=== PATIENT | female | born 1960 | race Caucasian/White ===

== ENCOUNTER 2020-10-15 06:59 | Day surgery (SDC) | payer MEDICARE ==
[2020-10-14 16:38] LABS: BASOPHILS % (AUTO) 0.9 % (0-1); EOSINOPHILS # (AUTO) 0.1 X10'3 (0-0.9); HEMATOCRIT 42.7 % (35.0-45.0); HEMOGLOBIN 14.6 g/dl (12.0-16.0); LYMPHOCYTES # (AUTO) 0.7 X10'3 (1.1-4.8); LYMPHOCYTES % (AUTO) 15.5 % (21-51); MEAN CORPUSCULAR HEMOGLOBIN 33.3 PG (27.0-31.0); MEAN CORPUSCULAR HGB CONC 34.3 g/dL (33.0-36.5); MEAN CORPUSCULAR VOLUME 97.3 FL (78-98); MEAN PLATELET VOLUME 7.9 FL (7.4-10.4); MONOCYTES # (AUTO) 0.3 X10'3 (0-0.9); MONOCYTES % (AUTO) 7.5 % (2-12); NEUTROPHILS # (AUTO) 3.1 X10'3 (1.8-7.7); NEUTROPHILS % (AUTO) 74.1 % (42-75); PLATELET COUNT 272 X10'3 (140-440); RED BLOOD COUNT 4.39 X10'6 (4.20-5.60); WHITE BLOOD COUNT 4.2 X10'3 (4.5-11.0)
[2020-10-14 16:48] LABS: PARTIAL THROMBOPLASTIN TIME 26 SECONDS (22-32)
[2020-10-14 16:58] LABS: ALBUMIN 3.7 G/DL (3.4-5.0); ANION GAP 12 (8-16); BLOOD UREA NITROGEN 8 MG/DL (7-18); BUN/CREATININE RATIO 9.1 (6.6-38.0); CALCIUM 8.8 MG/DL (8.5-10.1); CHLORIDE 97 MMOL/L (99-107); CREATININE 0.88 MG/DL (0.40-0.90); GLUCOSE 113 MG/DL (70-104); SODIUM 138 MMOL/L (135-145); TOTAL CARBON DIOXIDE 29.5 MMOL/L (24-32); eGFR 65 ML/MIN
[2020-10-15] VITALS (14 sets, daily range): BP systolic 68–132; BP diastolic 45–86
[~2020-10-15] VITALS: Ht 167.6 cm; Wt 81.2 kg
[~2020-10-15 06:59] MED LIST: ALBU8HFA PO; ASPI81TA53 PO; BUPR100T16 PO; CARB200T7 PO; COR3.125T PO; DOCU-148 PO; FLUO20CA39 PO; HYDR5SYR3 PO; LISI2.5T2 PO; NITR0.4T51 SL; OMEP40CA21 PO; PRAV20TA4 PO; PRED1TAB PO; SYN0.088T PO
[2020-10-15] MEDS ORDERED: diphenhydrAMINE 25mg capsule PO PRN (07:15)
[2020-10-15] MEDS ORDERED: normal saline 1,000 ML IV SCH (07:15)
[2020-10-15] MEDS ORDERED: LORazepam 0.5 MG tablet PO PRN (07:15)
[2020-10-15] MEDS ORDERED: LIDOcaine/PRILOcaine 5gm cream TP ONE (07:25)
[2020-10-15] MEDS ORDERED: SPIR25TA5 PO (07:37)
[2020-10-15] MEDS ORDERED: HYDR12.55 PO (07:37)
[2020-10-15] MEDS ORDERED: PANT40TA54 PO (07:37)
[2020-10-15] MEDS ORDERED: LEVO175T62 PO (07:37)
[2020-10-15] MEDS ORDERED: ATOR40TA72 PO (07:37)
[2020-10-15] MEDS ORDERED: LISI10TA27 PO (07:37)
[2020-10-15] MEDS ORDERED: CARV6.253 PO (07:37)
[2020-10-15] MEDS ORDERED: AMIT150T PO (07:37)
[2020-10-15] MEDS ORDERED: NITR0.4T51 SL (07:44)
[2020-10-15] MEDS ORDERED: LEVO50TA8 PO (07:44)
[2020-10-15] MEDS ORDERED: iohexol 350MG/ML 100ml bottle IV ONE (10:11)
[2020-10-15] MEDS ORDERED: midazolam 1 mg/ML 2ml injection ONE (10:11)
[2020-10-15] MEDS ORDERED: LIDOcaine 1% (10mg/ml)w/preservative injection 20ml MDV ONE (10:11)
[2020-10-15] MEDS ORDERED: fentaNYL/PF 50MCG/1 ML 2ML syringe ONE (10:11)
[2020-10-15] MEDS ORDERED: verapamil 2.5 mg/ml inj IV ONE (10:11)
[2020-10-15] MEDS ORDERED: iohexol 350 MG/ML 50ML vial IV ONE (10:11)
[2020-10-15] MEDS ORDERED: heparin 1,000unit/ml 10ml vial 10 ML ONE (10:11)
[2020-10-15] MEDS ORDERED: nitroGLYCERIN-Tridil 50MG/D5W 250 ML IV ONE (10:12)
[2020-10-15] MEDS ORDERED: DOPamine 400mg/D5W 250ml 250 ML IV ONE (11:05)
[2020-10-15] MEDS ORDERED: normal saline 1000ml 1,000 ML IV SCH (12:45)
== END 2020-10-15 18:50 | disposition home or self-care (01) ==
LOC: SSTAY O 06:59
PROVIDERS: ATTEND Internal Medicine Cardiovascular Disease
DX: I25.119 Atherosclerotic heart disease of native coronary artery with unspecified angina pectoris (principal); I42.0 Dilated cardiomyopathy; I10 Essential (primary) hypertension; E78.5 Hyperlipidemia, unspecified; F31.9 Bipolar disorder, unspecified; K21.9 Gastro-esophageal reflux disease without esophagitis; I25.2 Old myocardial infarction; E03.9 Hypothyroidism, unspecified; Z72.89 Other problems related to lifestyle; F12.90 Cannabis use, unspecified, uncomplicated; Z88.5 Allergy status to narcotic agent; Z79.899 Other long term (current) drug therapy; Z79.01 Long term (current) use of anticoagulants; Z87.19 Personal history of other diseases of the digestive system; Z90.49 Acquired absence of other specified parts of digestive tract; Z98.890 Other specified postprocedural states; Z82.49 Family history of ischemic heart disease and other diseases of the circulatory system; Z83.3 Family history of diabetes mellitus
CPT/HCPCS: 36415; 76937; 80048; 83880; 85025; 85347; 85610; 85730; 92978; 92979; 93005; 93458; 99152; 99153; C1751; C1753; C1769; C1894; J1265; J1644; J2001; J2250; J3010; J7030; Q0163; Q9967; A4620; A6258; J3490

== ENCOUNTER 2020-10-18 12:15 | Emergency (ER) | payer MEDICARE ==
[~2020-10-18] VITALS: Ht 167.6 cm; Wt 79.9 kg
[~2020-10-18 12:15] MED LIST changes: +AMIT150T PO; -ASPI81TA53 PO; +ATOR40TA72 PO; +CARV6.253 PO; -COR3.125T PO; -DOCU-148 PO; +HYDR12.55 PO; -HYDR5SYR3 PO; +LEVO175T62 PO; +LEVO50TA8 PO; +LISI10TA27 PO; -LISI2.5T2 PO; -OMEP40CA21 PO; +PANT40TA54 PO; -PRAV20TA4 PO; -PRED1TAB PO; +SPIR25TA5 PO; -SYN0.088T PO
--- NOTE | 2020-10-18 12:27 | NUR ---
EKG 1226
[2020-10-18 13:18] LABS: BASOPHILS # (AUTO) 0.1 X10'3 (0-0.2); BASOPHILS % (AUTO) 1.9 % (0-1); EOSINOPHILS # (AUTO) 0.1 X10'3 (0-0.9); EOSINOPHILS % (AUTO) 1.9 % (0-6); HEMATOCRIT 41.2 % (35.0-45.0); HEMOGLOBIN 14.1 g/dl (12.0-16.0); LYMPHOCYTES # (AUTO) 0.5 X10'3 (1.1-4.8); LYMPHOCYTES % (AUTO) 11.4 % (21-51); MEAN CORPUSCULAR HEMOGLOBIN 32.3 PG (27.0-31.0); MEAN CORPUSCULAR HGB CONC 34.2 g/dL (33.0-36.5); MEAN CORPUSCULAR VOLUME 94.4 FL (78-98); MEAN PLATELET VOLUME 7.5 FL (7.4-10.4); MONOCYTES # (AUTO) 0.3 X10'3 (0-0.9); MONOCYTES % (AUTO) 6.5 % (2-12); NEUTROPHILS # (AUTO) 3.7 X10'3 (1.8-7.7); NEUTROPHILS % (AUTO) 78.3 % (42-75); PLATELET COUNT 260 X10'3 (140-440); RED BLOOD COUNT 4.37 X10'6 (4.20-5.60); RED CELL DISTRIBUTION WIDTH 13.8 % (11.5-14.5); WHITE BLOOD COUNT 4.7 X10'3 (4.5-11.0)
[2020-10-18 13:32] LABS: ALANINE AMINOTRANSFERASE 28 U/L (12-78); ALBUMIN 3.5 G/DL (3.4-5.0); ALKALINE PHOSPHATASE 105 IU/L (46-116); ANION GAP 7 (8-16); ASPARTATE AMINO TRANSFERASE 23 U/L (10-37); BILIRUBIN,TOTAL 0.4 MG/DL (0.1-1.0); BLOOD UREA NITROGEN 6 MG/DL (7-18); BUN/CREATININE RATIO 6.9 (6.6-38.0); CALCIUM 8.9 MG/DL (8.5-10.1); CHLORIDE 100 MMOL/L (99-107); CREATININE 0.87 MG/DL (0.40-0.90); GLUCOSE 111 MG/DL (70-104); SODIUM 139 MMOL/L (135-145); TOTAL CARBON DIOXIDE 32.3 MMOL/L (24-32); TOTAL PROTEIN 7.1 G/DL (6.4-8.2); eGFR 66 ML/MIN
[2020-10-18] MEDS ORDERED: normal saline 1000ml 1,000 ML IV ONE (17:15)
[2020-10-18] MEDS ORDERED: proCHLORperazine 10 MG/2 ml inj IV ONE (17:15)
[2020-10-18] MEDS ORDERED: acetaminophen 325mg tablet PO ONE (17:15)
[2020-10-18] MEDS ORDERED: ketorolac trometh. 30mg/ml inj. IV ONE (17:15)
[2020-10-18 19:10] VITALS: BP 154/88
== END 2020-10-18 19:17 | disposition home or self-care (01) ==
LOC: ER 12:16
DX: R07.89 Other chest pain (principal); R42 Dizziness and giddiness; R51.9 Headache, unspecified; R11.10 Vomiting, unspecified; I25.10 Atherosclerotic heart disease of native coronary artery without angina pectoris; I10 Essential (primary) hypertension; F12.90 Cannabis use, unspecified, uncomplicated; Z72.89 Other problems related to lifestyle; Z79.899 Other long term (current) drug therapy; Z88.8 Allergy status to other drugs, medicaments and biological substances
CPT/HCPCS: 36415; 71045; 80053; 83880; 84484; 85025; 93005; 96361; 96374; 96375; 99285; J0780; J1885; J7030

== ENCOUNTER 2021-01-21 08:00 | Inpatient (IN) | payer MEDICARE ==
[2021-01-16 13:57] LABS: CLARITY,URINE CLOUDY (Clear); COLOR,URINE YELLOW (Yellow); GLUCOSE, URINE NEGATIVE (Neg); KETONES,URINE NEGATIVE (Neg); LEUKOCYTE ESTERASE ,URINE MODERATE (Neg); NITRITES, URINE NEGATIVE (Neg); OCCULT BLOOD,URINE SMALL (Neg); PROTEIN,URINE NEGATIVE (Neg); UA COLLECTION TYPE VOIDED; UROBILINOGEN,URINE 0.2 E.U/dL (0.2-1.0)
[2021-01-16 13:58] LABS: BACTERIA,URINE 1+ /HPF (Neg); MUCUS STRANDS NONE SEEN /LPF (Neg); RBC,URINE 0-2 /HPF (0-2)
[2021-01-16 13:59] LABS: SQUAMOUS EPITHELIAL CELL,UR FEW /LPF (FEW)
[2021-01-16 14:46] LABS: BASOPHILS # (AUTO) 0.1 X10'3 (0-0.2); EOSINOPHILS # (AUTO) 0.2 X10'3 (0-0.9); MONOCYTES # (AUTO) 0.4 X10'3 (0-0.9)
[2021-01-16 14:47] LABS: BASOPHILS % (AUTO) 1.2 % (0-1); EOSINOPHILS % (AUTO) 3.1 % (0-6); LYMPHOCYTES # (AUTO) 0.7 X10'3 (1.1-4.8); MEAN CORPUSCULAR HEMOGLOBIN 32.4 PG (27.0-31.0); MEAN CORPUSCULAR HGB CONC 35.4 g/dL (33.0-36.5); MEAN CORPUSCULAR VOLUME 91.6 FL (78-98); MEAN PLATELET VOLUME 7.4 FL (7.4-10.4); MONOCYTES % (AUTO) 6.4 % (2-12); NEUTROPHILS # (AUTO) 4.3 X10'3 (1.8-7.7); NEUTROPHILS % (AUTO) 77.3 % (42-75); PRE OP HEMATOCRIT 37.1 % (35.0-45.0); PRE OP HEMOGLOBIN 13.1 g/dL (12.0-16.0); PRE OP PLATELET COUNT 275 X10'3 (140-440); RED BLOOD COUNT 4.05 X10'6 (4.20-5.60)
[2021-01-16 14:59] LABS: PRE OP INR 1.1 INR; PRE OP PROTIME 11.2 SECONDS (9.0-12.0)
[2021-01-16 15:07] LABS: ALBUMIN 3.2 G/DL (3.4-5.0); ALBUMIN/GLOBULIN RATIO 0.9 (1.1-1.5); ALKALINE PHOSPHATASE 96 IU/L (46-116); BLOOD UREA NITROGEN 8 MG/DL (7-18); BUN/CREATININE RATIO 9.8 (6.6-38.0); CALCIUM 8.9 MG/DL (8.5-10.1); CHLORIDE 97 MMOL/L (99-107); CREATININE 0.82 MG/DL (0.40-0.90); PRE OP ALT 29 U/L (30-65); PRE OP ANION GAP 7 (8-16); PRE OP AST 22 U/L (10-37); PRE OP BILIRUB, TOTAL 0.3 MG/DL (0.0-1.0); PRE OP GLUCOSE 105 MG/DL (70-104); PRE OP SODIUM 140 MMOL/L (135-145); TOTAL CARBON DIOXIDE 35.9 MMOL/L (24-32); TOTAL PROTEIN 6.8 G/DL (6.4-8.2); eGFR 71 ML/MIN
[2021-01-16 15:10] LABS: HEMOGLOBIN A1C 6.1 % (4.5-6.2)
[2021-01-19 06:44] LABS: ABG BASE EXCESS 9.1 mmol/L (-2.0-2.0); ABG HCO3 31.9 mmol/L (22.0-26.0); ABG OXYGEN SATURATION 97.5 % (94-97); ABG PCO2 (T) 37.2 mmHg (32.0-45.0); ABG PO2 (T) 91.5 mmHg (75.0-100.0); ALLEN'S TEST POSITIVE; FCOHb 0.7 % (0.0-3.9); FMetHb 0.3 % (0.0-1.5); FO2Hb 96.5 % (94-97); TOTAL HEMOGLOBIN 13.6 G/dl (12.0-16.0)
[~2021-01-21] VITALS: Ht 167.6 cm; Wt 88.0 kg
[~2021-01-21 08:00] MED LIST changes: -ALBU8HFA PO; +ASPI-611 PO; +BUPR-344 PO; -BUPR100T16 PO; +CARB-52 PO; -CARB200T7 PO; +DOCUMENT DATE & TIME OF BETA-BLOCKER PO ONE; -FLUO20CA39 PO; -LEVO50TA8 PO; +LORazepam 2 mg/ml vial IV ONE; -NITR0.4T51 SL; +albuterol 2.5 MG/3 ML nebule NEB ONE; +albuterol 2.5 MG/3 ML nebule NEB PRN; +cefazolin/dext.iso 2gm/50ml 100 ML IV ONE; +famotidine 20mg tablet PO ONE; +gabapentin 400mg capsule PO ONE; +metoprolol tartrate 12.5mg (1/2 tablet) PO ONE; +ringers solution, lacted 1,000 ML IV SCH
[2021-01-22] MEDS ORDERED: FLUO40CA PO (13:17)
[2021-01-23] VITALS (18 sets, daily range): BP systolic 97–153; BP diastolic 52–93
[2021-01-23] MEDS ORDERED: ringers solution, lacted 1,000 ML IV SCH (05:00)
[2021-01-23] MEDS ORDERED: albuterol 2.5 MG/3 ML nebule NEB ONE ×2 (05:30→07:00)
[2021-01-23] MEDS ORDERED: cefazolin/dext.iso 2gm/50ml 50 ML IV ONE (05:30)
[2021-01-23] MEDS ORDERED: DOCUMENT DATE & TIME OF BETA-BLOCKER PO ONE (05:30)
[2021-01-23] MEDS ORDERED: BUPIVAcaine 0.5% inj/PF 30 ML ONE (05:40)
[2021-01-23] MEDS ORDERED: ceFAZolin 1000mg inj ONE ×2 (05:40→10:12)
[2021-01-23] MEDS ORDERED: epiNEPHrine 1 mg/ml inj ONE (05:40)
[2021-01-23] MEDS ORDERED: LORazepam 2 mg/ml vial IV ONE (06:00)
[2021-01-23] MEDS ORDERED: famotidine 20mg tablet PO ONE (06:00)
[2021-01-23] MEDS ORDERED: gabapentin 400mg capsule PO ONE (06:00)
[2021-01-23] MEDS ORDERED: metoprolol tartrate 12.5mg (1/2 tablet) PO ONE (06:00)
[2021-01-23] MEDS ORDERED: SUFENTANIL CITRATE 50 MCG/ML 2ml ampule IV ONE (06:41)
[2021-01-23] MEDS ORDERED: MIDAZolam 1mg/ml 10ml vial ONE (06:41)
[2021-01-23] MEDS ORDERED: dextrose 50%-water 50ml dispensing syringe IV PRN ×4 (06:55→10:15)
[2021-01-23] MEDS ORDERED: insulin Lispro (HumaLOG) vial - multi-dose SQ SCH ×2 (06:55→07:20)
[2021-01-23] MEDS ORDERED: glucagon, human recombinant 1mg kit SUBCUT PRN (06:55)
[2021-01-23] MEDS ORDERED: dextrose ORAL solution 15 GM/59 ML bottle PO PRN ×2 (06:55)
[2021-01-23] MEDS ORDERED: MESSAGE TO PHARMACY PO ONE (06:55)
[2021-01-23] MEDS ORDERED: midazolam 100mg in NS 100ml 100 ML IV PRN (07:20)
[2021-01-23] MEDS ORDERED: fentaNYL/PF 50MCG/1 ML 2ML syringe IV PRN (07:20)
[2021-01-23] MEDS ORDERED: midazolam 1 mg/ML 2ml injection IV ONE (07:20)
[2021-01-23] MEDS ORDERED: FENTANYL-0.9 % NACL/PF 100 ML IV PRN (07:20)
[2021-01-23] MEDS ORDERED: albumin (human) 25% 100 ML IV solution IV ONE (08:00)
[2021-01-23] MEDS ORDERED: sodium bicarbonate (8.4%) 1 mEq/ml syringe ONE (08:00)
[2021-01-23] MEDS ORDERED: heparin 1,000 units/ml 10ml inj ONE (08:00)
[2021-01-23] MEDS ORDERED: calcium chloride 100 MG/1 ML inj IV ONE (08:00)
[2021-01-23] MEDS ORDERED: LIDOcaine 2% (20 mg/ml) 5ml cardiac syringe ONE (08:00)
[2021-01-23] MEDS ORDERED: papaverine 30 mg/ml 2ml inj. ONE (08:00)
[2021-01-23] MEDS ORDERED: methylPREDNISolone sod succ 1000mg vial ONE (08:00)
[2021-01-23] MEDS ORDERED: aminocaproic acid 250 MG/1 ML inj. ONE (08:00)
[2021-01-23] MEDS ORDERED: NORepinephrine 1 mg/ml inj IV ONE (08:00)
[2021-01-23] MEDS ORDERED: MAGNESIUM SULFATE 4 MEQ/ML (5gm/10ml) injection ONE (08:00)
[2021-01-23] MEDS ORDERED: heparin 10,000 units/1 ML INJ ONE ×2 (08:00)
[2021-01-23 08:04] LABS: ABG BASE EXCESS 0.3 mmol/L (-2.0-2.0); ABG HCO3 23.7 mmol/L (22.0-26.0); ABG OXYGEN SATURATION 99.5 % (94-97); ABG PCO2 34.3 mmHg (32.0-45.0); ABG PO2 308.6 mmHg (75.0-100.0); CL (ABG) 102 mmol/L (98-110); FCOHb 0.3 % (0.0-3.9); FMetHb 0.3 % (0.0-1.5); FO2Hb 98.9 % (94-97); GLUCOSE (ABG) 92 mg/dl (70-105); IONIZED CA (ABG) 1.09 mmol/L (1.10-1.43); K (ABG) 3.2 mmol/L (3.5-5.0); TOTAL HEMOGLOBIN 11.4 G/dl (12.0-16.0)
[2021-01-23] MEDS ORDERED: phenylephrine 10mg/ml inj. ONE (08:18)
[2021-01-23] MEDS ORDERED: LIDOcaine 2% (20mg/ml) 5ml vial ONE (08:18)
[2021-01-23] MEDS ORDERED: rocuronium 10mg/ml inj IV ONE ×3 (08:18→09:56)
[2021-01-23] MEDS ORDERED: propofol inj 20 ML IV ONE (08:18)
[2021-01-23] MEDS ORDERED: 0.9 % SODIUM CHLORIDE 10 ML VIAL ONE ×3 (08:18→08:29)
[2021-01-23] MEDS ORDERED: papaverine 30 mg/ml 2ml inj. IA ONE (08:28)
[2021-01-23] MEDS ORDERED: heparin 10,000 units/1 ML INJ IR ONE (08:28)
[2021-01-23] MEDS ORDERED: ePHEDrine 50MG/ML INJ. ONE (08:29)
[2021-01-23 09:56] LABS: ACTIVATED CLOTTING TIME 137 SEC (101-148)
[2021-01-23] MEDS ORDERED: dexamethasone sod phosphate 4mg/ml inj. ONE (09:58)
[2021-01-23] MEDS ORDERED: ondansetron/PF 4mg/2ml inj ONE (09:58)
[2021-01-23] MEDS ORDERED: ondansetron/PF 4mg/2ml inj IV PRN (10:15)
[2021-01-23] MEDS ORDERED: niCARDipine-NS 40mg/200ml IVPB 200 ML IV PRN (10:15)
[2021-01-23] MEDS ORDERED: magnesium citrate 296ml oral solution PO PRN (10:15)
[2021-01-23] MEDS ORDERED: acetaminophen 325mg tablet PO PRN (10:15)
[2021-01-23] MEDS ORDERED: magnesium 4gm in 100ml NS 100 ML IV PRN (10:15)
[2021-01-23] MEDS ORDERED: mineral oil 133ml enema RC PRN (10:15)
[2021-01-23] MEDS ORDERED: pantoprazole 40 MG vial IV ONE (10:15)
[2021-01-23] MEDS ORDERED: metoclopramide 5 mg/ml inj IV PRN (10:15)
[2021-01-23] MEDS ORDERED: morphine 4 MG/ML inj SYRINge IV PRN (10:15)
[2021-01-23] MEDS ORDERED: magnesium 2GM in 50ml NS 50 ML IV PRN (10:15)
[2021-01-23] MEDS ORDERED: HYDROcodone/acetaminophen 10/325mg tab PO PRN (10:15)
[2021-01-23] MEDS ORDERED: potassium CL 10mEq/100ml bag 100 ML IV PRN (10:15)
[2021-01-23] MEDS ORDERED: potassium Cl 20 mEq SR tablet PO PRN (10:15)
[2021-01-23] MEDS ORDERED: magnesium hydroxide 30ml (MOM) UD suspension PO PRN (10:15)
[2021-01-23] MEDS ORDERED: bisacodyl 10mg suppository rectal RC PRN (10:15)
[2021-01-23] MEDS ORDERED: sodium phosphate inj. 30 MMOL in dextrose 5%-water 250 ML IV PRN (10:15)
[2021-01-23] MEDS ORDERED: insulin glargine (Lantus) pen - multi-dose SQ PRN (10:15)
[2021-01-23] MEDS ORDERED: sodium phosphate inj. 15 MMOL in dextrose 5%-water 250 ML IV PRN (10:15)
[2021-01-23] MEDS ORDERED: potassium Cl 40MEQ/250ML bag 250 ML IV PRN (10:15)
[2021-01-23] MEDS ORDERED: Neutra Phos packet PO PRN (10:15)
[2021-01-23] MEDS ORDERED: potassium Cl 20mEq/100mL bag 100 ML IV PRN (10:15)
[2021-01-23] MEDS ORDERED: NOREPINEPHRINE BITARTRATE/D5W 250 ML IV PRN (10:15)
[2021-01-23] MEDS ORDERED: Insulin Reg/NS 100units/100mL 100 ML IV SCH (10:15)
[2021-01-23] MEDS ORDERED: potassium Cl 40MEQ/1/2NS 520ml 520 ML IV PRN (10:15)
[2021-01-23] MEDS ORDERED: nitroGLYCERIN-Tridil 50MG/D5W 250 ML IV SCH (10:15)
--- NOTE | 2021-01-23 10:30 | NUR ---
Received to room 2044, accompanied by MDs and surgical crew. Placed on ventilator, to paper novelty maker, arterial line and PA line pressure monitored. Chest tubes to suction at 20 cm. Oates cath to gravity drainage. Dressings are dry and intact. See assessment record. All vasoactive drugs are infusing via central line.
[2021-01-23 10:49] LABS: ABG BASE EXCESS -0.4 mmol/L (-2.0-2.0); ABG HCO3 23.1 mmol/L (22.0-26.0); ABG OXYGEN SATURATION 99.1 % (94-97); ABG PCO2 (T) 33.6 mmHg (32.0-45.0); FCOHb 0.2 % (0.0-3.9); FMetHb 0.4 % (0.0-1.5); FO2Hb 98.5 % (94-97); RESPIRATORY RATE 12 b/min; TIDAL VOLUME 500 mL; TOTAL HEMOGLOBIN 10.1 G/dl (12.0-16.0)
[2021-01-23] MEDS ORDERED: NORepinephrine 32 MG in Normal Saline 250ml IV soln IV SCH (11:00)
[2021-01-23] MEDS ORDERED: NORepinephrine 32 MG in Normal Saline 250ml IV soln IV PRN (11:01)
[2021-01-23 11:05] LABS: BASOPHILS % (AUTO) 0.3 % (0-1); EOSINOPHILS # (AUTO) 0.1 X10'3 (0-0.9); EOSINOPHILS % (AUTO) 0.6 % (0-6); HEMATOCRIT 27.6 % (35.0-45.0); HEMOGLOBIN 9.5 g/dl (12.0-16.0); LYMPHOCYTES # (AUTO) 0.4 X10'3 (1.1-4.8); LYMPHOCYTES % (AUTO) 3.3 % (21-51); MEAN CORPUSCULAR HGB CONC 34.3 g/dL (33.0-36.5); MEAN CORPUSCULAR VOLUME 93.1 FL (78-98); MEAN PLATELET VOLUME 7.3 FL (7.4-10.4); MONOCYTES # (AUTO) 0.3 X10'3 (0-0.9); MONOCYTES % (AUTO) 2.2 % (2-12); NEUTROPHILS % (AUTO) 93.6 % (42-75); PLATELET COUNT 195 X10'3 (140-440); RED BLOOD COUNT 2.97 X10'6 (4.20-5.60); RED CELL DISTRIBUTION WIDTH 13.3 % (11.5-14.5); WHITE BLOOD COUNT 12.8 X10'3 (4.5-11.0)
--- NOTE | 2021-01-23 11:14 | NUR ---
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 Would benefit from nutrition therapy education once stable. Will continue to follow. Addendum: 01/23/21 at [address] Amended: Links added.
[2021-01-23 11:15] LABS: PARTIAL THROMBOPLASTIN TIME 26 SECONDS (22-32)
[2021-01-23 11:17] LABS: ALANINE AMINOTRANSFERASE 24 U/L (12-78); ALBUMIN 2.4 G/DL (3.4-5.0); ALBUMIN/GLOBULIN RATIO 1.1 (1.1-1.5); ALKALINE PHOSPHATASE 64 IU/L (46-116); ANION GAP 11 (8-16); ASPARTATE AMINO TRANSFERASE 28 U/L (10-37); BILIRUBIN,TOTAL 0.4 MG/DL (0.1-1.0); BLOOD UREA NITROGEN 6 MG/DL (7-18); BUN/CREATININE RATIO 7.9 (6.6-38.0); CALCIUM 7.8 MG/DL (8.5-10.1); CHLORIDE 108 MMOL/L (99-107); CREATININE 0.76 MG/DL (0.40-0.90); GLUCOSE 204 MG/DL (70-104); MAGNESIUM 2.7 MG/DL (1.5-2.4); PHOSPHORUS 2.9 MG/DL (2.3-4.5); POTASSIUM 3.8 MMOL/L (3.5-5.1); SODIUM 145 MMOL/L (135-145); TOTAL CARBON DIOXIDE 26.3 MMOL/L (24-32); TOTAL PROTEIN 4.5 G/DL (6.4-8.2); eGFR 77 ML/MIN
--- NOTE | 2021-01-23 11:41 | NUR ---
ST Elevation noted on post-op EKG; Dr. Garay notified. Monitor for ST depression per MD. No other new orders at this time.
[2021-01-23] MEDS ORDERED: NORepinephrine inj. 8 MG in dextrose 5%-water 242 ML IV PRN (11:55)
[2021-01-23] MEDS: Insulin Reg/NS 100units/100mL 100 ML IV SCH (11:56)
[2021-01-23] MEDS ORDERED: NORepinephrine 8mg/ 250ml NS 250 ML IV PRN (11:57)
[2021-01-23] MEDS: gabapentin 300mg capsule PO SCH ×2 (12:03→20:18)
[2021-01-23 14:21] LABS: ABG BASE EXCESS -0.8 mmol/L (-2.0-2.0); ABG HCO3 24.3 mmol/L (22.0-26.0); ABG PCO2 (T) 43.3 mmHg (32.0-45.0); ABG PO2 (T) 141.1 mmHg (75.0-100.0); FCOHb 0.3 % (0.0-3.9); FMetHb 0.1 % (0.0-1.5); FO2Hb 97.6 % (94-97); PATIENT TEMPERATURE 37.7; PEEP 5 cm H2O; TOTAL HEMOGLOBIN 10.5 G/dl (12.0-16.0)
[2021-01-23] MEDS: morphine 4 MG/ML inj SYRINge IV PRN ×2 (15:50→22:34)
[2021-01-23] MEDS: ceFAZolin/D5W- 1GM premix 50 ML IV SCH (16:13)
[2021-01-23] MEDS: albumin (Human) 5% 250ml 250 ML IV PRN (16:26)
[2021-01-23 16:54] LABS: BASOPHILS % (AUTO) 0.1 % (0-1); EOSINOPHILS % (AUTO) 0.1 % (0-6); HEMATOCRIT 25.1 % (35.0-45.0); HEMOGLOBIN 8.7 g/dl (12.0-16.0); LYMPHOCYTES # (AUTO) 0.2 X10'3 (1.1-4.8); LYMPHOCYTES % (AUTO) 1.6 % (21-51); MEAN CORPUSCULAR HEMOGLOBIN 31.7 PG (27.0-31.0); MEAN CORPUSCULAR HGB CONC 34.6 g/dL (33.0-36.5); MEAN CORPUSCULAR VOLUME 91.7 FL (78-98); MEAN PLATELET VOLUME 7.1 FL (7.4-10.4); MONOCYTES # (AUTO) 0.2 X10'3 (0-0.9); MONOCYTES % (AUTO) 1.7 % (2-12); NEUTROPHILS # (AUTO) 11.3 X10'3 (1.8-7.7); NEUTROPHILS % (AUTO) 96.5 % (42-75); PLATELET COUNT 186 X10'3 (140-440); RED BLOOD COUNT 2.73 X10'6 (4.20-5.60); WHITE BLOOD COUNT 11.7 X10'3 (4.5-11.0)
[2021-01-23 17:04] LABS: ANION GAP 9 (8-16); BLOOD UREA NITROGEN 8 MG/DL (7-18); BUN/CREATININE RATIO 8.2 (6.6-38.0); CALCIUM 7.6 MG/DL (8.5-10.1); CHLORIDE 112 MMOL/L (99-107); CREATININE 0.97 MG/DL (0.40-0.90); GLUCOSE 131 MG/DL (70-104); MAGNESIUM 2.3 MG/DL (1.5-2.4); PHOSPHORUS 1.9 MG/DL (2.3-4.5); POTASSIUM 3.8 MMOL/L (3.5-5.1); SODIUM 148 MMOL/L (135-145); TOTAL CARBON DIOXIDE 26.7 MMOL/L (24-32); eGFR 58 ML/MIN
[2021-01-23] MEDS ORDERED: potassium phosphate inj 15 MMOL in NS 250ml IV soln 250 ML IV ONE (17:15)
--- NOTE | 2021-01-23 18:30 | NUR ---
Problems reprioritized. Patient report given, questions answered & plan of care reviewed with Luis SIMMONS.
[2021-01-23] MEDS ORDERED: LORazepam 2 mg/ml vial IV PRN (18:35)
[2021-01-23] MEDS ORDERED: haloperidol 5mg tablet PO PRN (18:35)
[2021-01-23] MEDS ORDERED: haloperidol lactate 5mg/ml inj IM PRN (18:35)
--- NOTE | 2021-01-23 18:39 | NUR ---
Patient with increasing tremors/fidgeting; per , patient consumes 6-7 beers/night. Dr. Garay notified and okay with the Alcohol withdrawal protocol and beer with each meal, including tonight.
--- NOTE | 2021-01-23 19:00 | NUR ---
Patient in room ICU 2044. I have received report from David SIMMONS and had the opportunity to ask questions and assume patient care.
[2021-01-23] MEDS: sennosides/docusate sodium tablet PO SCH (20:18)
[2021-01-23] MEDS: vancomycin/NS 1 GM ADD-VANTAGE 250 ML IV SCH (20:19)
[2021-01-23] MEDS: mupirocin 2% ointment 22GM NS SCH (20:19)
[2021-01-23] MEDS: atorvastatin 10mg tablet PO SCH (21:00)
[2021-01-23] MEDS: insulin glargine (Lantus) pen - multi-dose SQ SCH (21:00)
[2021-01-24] VITALS (26 sets, daily range): BP systolic 89–155; BP diastolic 30–79
[2021-01-24] MEDS: morphine 4 MG/ML inj SYRINge IV PRN ×4 (00:12→22:16)
[2021-01-24] MEDS: ceFAZolin/D5W- 1GM premix 50 ML IV SCH ×3 (00:19→16:21)
[2021-01-24 03:16] LABS: ALANINE AMINOTRANSFERASE 29 U/L (12-78); ALBUMIN 2.8 G/DL (3.4-5.0); ALBUMIN/GLOBULIN RATIO 1.2 (1.1-1.5); ALKALINE PHOSPHATASE 58 IU/L (46-116); ANION GAP 8 (8-16); ASPARTATE AMINO TRANSFERASE 93 U/L (10-37); BILIRUBIN,TOTAL 0.2 MG/DL (0.1-1.0); BLOOD UREA NITROGEN 8 MG/DL (7-18); BUN/CREATININE RATIO 8.9 (6.6-38.0); CALCIUM 7.6 MG/DL (8.5-10.1); CHLORIDE 112 MMOL/L (99-107); GLUCOSE 119 MG/DL (70-104); MAGNESIUM 2.5 MG/DL (1.5-2.4); POTASSIUM 4.5 MMOL/L (3.5-5.1); SODIUM 146 MMOL/L (135-145); TOTAL CARBON DIOXIDE 25.8 MMOL/L (24-32); TOTAL PROTEIN 5.1 G/DL (6.4-8.2); eGFR 64 ML/MIN
[2021-01-24 03:26] LABS: BASOPHILS % (AUTO) 0.1 % (0-1); EOSINOPHILS % (AUTO) 0 % (0-6); HEMATOCRIT 24.1 % (35.0-45.0); HEMOGLOBIN 8.3 g/dl (12.0-16.0); LYMPHOCYTES # (AUTO) 0.5 X10'3 (1.1-4.8); LYMPHOCYTES % (AUTO) 4.3 % (21-51); MEAN CORPUSCULAR HEMOGLOBIN 33.2 PG (27.0-31.0); MEAN CORPUSCULAR HGB CONC 34.3 g/dL (33.0-36.5); MEAN PLATELET VOLUME 8.4 FL (7.4-10.4); MONOCYTES # (AUTO) 0.9 X10'3 (0-0.9); MONOCYTES % (AUTO) 7.4 % (2-12); NEUTROPHILS # (AUTO) 10.7 X10'3 (1.8-7.7); NEUTROPHILS % (AUTO) 88.2 % (42-75); PLATELET COUNT 187 X10'3 (140-440); RED BLOOD COUNT 2.49 X10'6 (4.20-5.60); RED CELL DISTRIBUTION WIDTH 13.8 % (11.5-14.5); WHITE BLOOD COUNT 12.1 X10'3 (4.5-11.0)
[2021-01-24] MEDS: HYDROcodone/acetaminophen 10/325mg tab PO PRN (05:36)
[2021-01-24] MEDS: sennosides/docusate sodium tablet PO SCH ×3 (07:34→20:00)
[2021-01-24] MEDS: gabapentin 300mg capsule PO SCH ×3 (07:35→20:44)
[2021-01-24] MEDS: aspirin 325mg tablet, delayed-release (Ecotrin) PO SCH (07:35)
[2021-01-24] MEDS: folic acid 1mg tablet PO SCH (07:35)
[2021-01-24] MEDS: vancomycin/NS 1 GM ADD-VANTAGE 250 ML IV SCH ×2 (07:36→21:02)
[2021-01-24] MEDS: thiamine 100mg tablet PO SCH (07:36)
[2021-01-24] MEDS: multivitamins, therapeutics tablet PO SCH (07:36)
[2021-01-24] MEDS: albumin (Human) 5% 250ml 250 ML IV PRN ×2 (07:37→08:18)
[2021-01-24] MEDS: metoprolol tartrate 12.5mg (1/2 tablet) PO SCH ×2 (08:00→20:00)
[2021-01-24] MEDS: mupirocin 2% ointment 22GM NS SCH ×2 (08:00→20:00)
[2021-01-24] MEDS ORDERED: mineral oil/petrolatum ophthal oint EACHEYE SCH (08:00)
[2021-01-24] MEDS ORDERED: pantoprazole 40mg Tablet.DR PO SCH (14:35)
[2021-01-24 15:06] LABS: HEMOGLOBIN 7.2 g/dl (12.0-16.0); MEAN CORPUSCULAR HEMOGLOBIN 32.1 PG (27.0-31.0); MEAN CORPUSCULAR HGB CONC 34.2 g/dL (33.0-36.5); MEAN CORPUSCULAR VOLUME 93.8 FL (78-98); MEAN PLATELET VOLUME 7.8 FL (7.4-10.4); PLATELET COUNT 179 X10'3 (140-440); RED BLOOD COUNT 2.26 X10'6 (4.20-5.60); RED CELL DISTRIBUTION WIDTH 13.5 % (11.5-14.5); WHITE BLOOD COUNT 11.4 X10'3 (4.5-11.0)
[2021-01-24 15:08] LABS: HEMATOCRIT 21.2 % (35.0-45.0)
[2021-01-24] MEDS ORDERED: ketorolac trometh. 30mg/ml inj. IV ONE (15:20)
[2021-01-24] MEDS: Insulin Reg/NS 100units/100mL 100 ML IV SCH (16:40)
[2021-01-24] MEDS: FLUoxetine 20mg capsule PO SCH (20:00)
[2021-01-24] MEDS: carBAMazepine Ext. Release 200 MG TAB.ER.12H PO SCH (20:00)
[2021-01-24] MEDS: atorvastatin 10mg tablet PO SCH (20:43)
[2021-01-24] MEDS: amitriptyline 50mg tablet PO SCH (20:45)
[2021-01-24] MEDS: insulin glargine (Lantus) pen - multi-dose SQ SCH (21:00)
[2021-01-25] VITALS (24 sets, daily range): BP systolic 84–128; BP diastolic 46–86
[2021-01-25] MEDS: morphine 4 MG/ML inj SYRINge IV PRN ×2 (01:24→06:59)
[2021-01-25] MEDS: ceFAZolin/D5W- 1GM premix 50 ML IV SCH (02:23)
[2021-01-25 03:17] LABS: BASOPHILS % (AUTO) 0.4 % (0-1); EOSINOPHILS % (AUTO) 0.4 % (0-6); HEMATOCRIT 24.8 % (35.0-45.0); HEMOGLOBIN 8.6 g/dl (12.0-16.0); LYMPHOCYTES # (AUTO) 0.8 X10'3 (1.1-4.8); LYMPHOCYTES % (AUTO) 8.7 % (21-51); MEAN CORPUSCULAR HEMOGLOBIN 33.4 PG (27.0-31.0); MEAN CORPUSCULAR HGB CONC 34.6 g/dL (33.0-36.5); MEAN CORPUSCULAR VOLUME 96.4 FL (78-98); MONOCYTES # (AUTO) 0.9 X10'3 (0-0.9); MONOCYTES % (AUTO) 9.8 % (2-12); NEUTROPHILS # (AUTO) 7.4 X10'3 (1.8-7.7); NEUTROPHILS % (AUTO) 80.7 % (42-75); PLATELET COUNT 158 X10'3 (140-440); RED BLOOD COUNT 2.57 X10'6 (4.20-5.60); RED CELL DISTRIBUTION WIDTH 14.2 % (11.5-14.5); WHITE BLOOD COUNT 9.1 X10'3 (4.5-11.0)
[2021-01-25 03:26] LABS: ALBUMIN 2.9 G/DL (3.4-5.0); ANION GAP 8 (8-16); BLOOD UREA NITROGEN 11 MG/DL (7-18); BUN/CREATININE RATIO 12.4 (6.6-38.0); CALCIUM 7.8 MG/DL (8.5-10.1); CHLORIDE 109 MMOL/L (99-107); CREATININE 0.89 MG/DL (0.40-0.90); GLUCOSE 139 MG/DL (70-104); MAGNESIUM 2.1 MG/DL (1.5-2.4); PHOSPHORUS 2.6 MG/DL (2.3-4.5); POTASSIUM 4.7 MMOL/L (3.5-5.1); SODIUM 142 MMOL/L (135-145); TOTAL CARBON DIOXIDE 25.4 MMOL/L (24-32); eGFR 64 ML/MIN
--- NOTE | 2021-01-25 06:30 | NUR ---
Patient in room ICU 2044. I have received report from TROY Smith and had the opportunity to ask questions and assume patient care.
[2021-01-25] MEDS: pantoprazole 40mg Tablet.DR PO SCH (07:00)
[2021-01-25] MEDS: levoTHYROXINE 88mcg tablet PO SCH (07:00)
[2021-01-25] MEDS: aspirin 325mg tablet, delayed-release (Ecotrin) PO SCH (07:52)
[2021-01-25] MEDS: buPROPion SR 150mg tablet PO SCH ×2 (07:52→20:00)
[2021-01-25] MEDS: folic acid 1mg tablet PO SCH (07:53)
[2021-01-25] MEDS: metoprolol tartrate 12.5mg (1/2 tablet) PO SCH (07:53)
[2021-01-25] MEDS: gabapentin 300mg capsule PO SCH (07:53)
[2021-01-25] MEDS: thiamine 100mg tablet PO SCH (07:54)
[2021-01-25] MEDS: FLUoxetine 20mg capsule PO SCH ×2 (07:54→20:00)
[2021-01-25] MEDS: multivitamins, therapeutics tablet PO SCH (07:54)
[2021-01-25] MEDS: HYDROcodone/acetaminophen 10/325mg tab PO PRN (07:55)
[2021-01-25] MEDS: mupirocin 2% ointment 22GM NS SCH (07:57)
[2021-01-25] MEDS: sennosides/docusate sodium tablet PO SCH ×2 (07:58→20:00)
[2021-01-25] MEDS ORDERED: magnesium 4gm in 100ml NS 100 ML IV PRN (08:30)
[2021-01-25] MEDS ORDERED: metoprolol tartrate 12.5mg (1/2 tablet) PO ONE (08:30)
[2021-01-25] MEDS ORDERED: potassium Cl 40MEQ/250ML bag 250 ML IV PRN (08:30)
[2021-01-25] MEDS ORDERED: potassium Cl 20mEq/100mL bag 100 ML IV PRN (08:30)
[2021-01-25] MEDS ORDERED: potassium CL 10mEq/100ml bag 100 ML IV PRN (08:30)
[2021-01-25] MEDS ORDERED: potassium Cl 40MEQ/1/2NS 520ml 520 ML IV PRN (08:30)
[2021-01-25] MEDS ORDERED: potassium Cl 20 mEq SR tablet PO PRN (08:30)
[2021-01-25] MEDS ORDERED: magnesium 2GM in 50ml NS 50 ML IV PRN (08:30)
[2021-01-25] MEDS: carBAMazepine Ext. Release 200 MG TAB.ER.12H PO SCH ×2 (08:40→20:00)
--- NOTE | 2021-01-25 11:27 | NUR ---
Nutrition consult: Pt s/p CABG x 3 01/23. Provided pt w/ written and verbal nutrition for wound healing education w/ RD contact info. Pt receptive of education. Will continue to monitor. Addendum: 01/25/21 at [address] Amended: Links added.
--- NOTE | 2021-01-25 18:18 | NUR ---
Problems reprioritized. Patient report given, questions answered & plan of care reviewed with TRYO Burgess.
[2021-01-25] MEDS ORDERED: LORazepam 2 mg/ml vial IV PRN (18:35)
[2021-01-25] MEDS ORDERED: LORazepam 1 MG tablet PO PRN (18:35)
[2021-01-25] MEDS: metoprolol tartrate 25mg tablet PO SCH (20:00)
[2021-01-25] MEDS: magnesium Cl slow-release 64mg tablet PO SCH (20:05)
[2021-01-25] MEDS: potassium Cl 20 mEq SR tablet PO SCH (20:05)
[2021-01-25] MEDS: atorvastatin 10mg tablet PO SCH (20:05)
[2021-01-25] MEDS: ketorolac tromethamine 15mg/ml inj. IV SCH (20:06)
[2021-01-25] MEDS: amitriptyline 50mg tablet PO SCH (20:25)
[2021-01-25] MEDS: insulin glargine (Lantus) pen - multi-dose SQ SCH (20:55)
[2021-01-25] MEDS ORDERED: furosemide 20 MG/2 ML vial IV ONE (21:25)
[2021-01-25] MEDS ORDERED: albuterol 2.5 MG/3 ML nebule NEB PRN (21:25)
[2021-01-26] VITALS (20 sets, daily range): BP systolic 61–152; BP diastolic 36–94
[2021-01-26] MEDS: Insulin Reg/NS 100units/100mL 100 ML IV SCH (02:00)
[2021-01-26] MEDS: ketorolac tromethamine 15mg/ml inj. IV SCH ×4 (02:01→22:08)
[2021-01-26] MEDS: acetaminophen 325mg tablet PO PRN (02:25)
[2021-01-26 03:07] LABS: BASOPHILS % (AUTO) 0.4 % (0-1); EOSINOPHILS # (AUTO) 0.1 X10'3 (0-0.9); EOSINOPHILS % (AUTO) 1.8 % (0-6); HEMATOCRIT 23.1 % (35.0-45.0); HEMOGLOBIN 8.3 g/dl (12.0-16.0); LYMPHOCYTES # (AUTO) 0.7 X10'3 (1.1-4.8); LYMPHOCYTES % (AUTO) 10.7 % (21-51); MEAN CORPUSCULAR HEMOGLOBIN 35.4 PG (27.0-31.0); MEAN CORPUSCULAR HGB CONC 35.7 g/dL (33.0-36.5); MEAN CORPUSCULAR VOLUME 99.4 FL (78-98); MEAN PLATELET VOLUME 8.6 FL (7.4-10.4); MONOCYTES # (AUTO) 0.7 X10'3 (0-0.9); NEUTROPHILS % (AUTO) 77.1 % (42-75); PLATELET COUNT 141 X10'3 (140-440); RED BLOOD COUNT 2.33 X10'6 (4.20-5.60); RED CELL DISTRIBUTION WIDTH 14.3 % (11.5-14.5); WHITE BLOOD COUNT 6.5 X10'3 (4.5-11.0)
[2021-01-26 03:21] LABS: ALBUMIN 2.6 G/DL (3.4-5.0); ANION GAP 6 (8-16); BLOOD UREA NITROGEN 9 MG/DL (7-18); BUN/CREATININE RATIO 13.8 (6.6-38.0); CHLORIDE 106 MMOL/L (99-107); CREATININE 0.65 MG/DL (0.40-0.90); GLUCOSE 110 MG/DL (70-104); POTASSIUM 4.2 MMOL/L (3.5-5.1); SODIUM 141 MMOL/L (135-145); eGFR > 90 ML/MIN
--- NOTE | 2021-01-26 06:26 | NUR ---
Problems reprioritized. Patient report given, questions answered & plan of care reviewed with Kaitlin SIMMONS.
[2021-01-26 06:34] LABS: ABG BASE EXCESS 3.6 mmol/L (-2.0-2.0); ABG HCO3 26.5 mmol/L (22.0-26.0); ABG OXYGEN SATURATION 99.9 % (94-97); ABG PCO2 33.1 mmHg (32.0-45.0); ABG PO2 427.1 mmHg (75.0-100.0); CL (ABG) 102 mmol/L (98-110); FCOHb 0.9 % (0.0-3.9); FMetHb 0.3 % (0.0-1.5); FO2Hb 98.7 % (94-97); GLUCOSE (ABG) 130 mg/dl (70-105); IONIZED CA (ABG) 0.93 mmol/L (1.10-1.43); K (ABG) 3.8 mmol/L (3.5-5.0); TOTAL HEMOGLOBIN 8.4 G/dl (12.0-16.0)
[2021-01-26 06:35] LABS: ACT @ 1.70 U 275 SEC (193-297); ACT @ 2.84 U 414 SEC (260-420); BASELINE ACT 147 SEC (101-148); PATIENT WEIGHT 82.0k KG
[2021-01-26 06:35] LABS: ABG BASE EXCESS 1.9 mmol/L (-2.0-2.0); ABG HCO3 24.9 mmol/L (22.0-26.0); ABG OXYGEN SATURATION 99.6 % (94-97); ABG PCO2 32.4 mmHg (32.0-45.0); ABG PO2 256.6 mmHg (75.0-100.0); CL (ABG) 104 mmol/L (98-110); FMetHb 0.3 % (0.0-1.5); FO2Hb 98.3 % (94-97); GLUCOSE (ABG) 124 mg/dl (70-105); IONIZED CA (ABG) 1.17 mmol/L (1.10-1.43); K (ABG) 3.1 mmol/L (3.5-5.0); TOTAL HEMOGLOBIN 8.1 G/dl (12.0-16.0)
[2021-01-26 06:36] LABS: ABG HCO3 VENOUS 26.7 mmol/L (21.0-28.0); ABG PCO2 VENOUS 37.2 mmHg (38.0-51.0); ABG PO2 VENOUS 45.6 mmHg (25.0-35.0); CL (ABG) 102 mmol/L (98-110); FCOHb VENOUS 0.9 % (0.0- 3.9); FHHb VENOUS 16.2 %; FMetHb VENOUS 0.3 % (0.0 - 0.5); FO2Hb VENOUS 82.6 %; GLUCOSE (ABG) 131 mg/dl (70-105); K (ABG) 3.4 mmol/L (3.5-5.0); TOTAL HEMOGLOBIN 8.4 G/dl (12.0-16.0)
[2021-01-26 06:36] LABS: ABG BASE EXCESS 3.7 mmol/L (-2.0-2.0); ABG HCO3 27.4 mmol/L (22.0-26.0); ABG OXYGEN SATURATION 99.6 % (94-97); ABG PCO2 37.6 mmHg (32.0-45.0); CL (ABG) 100 mmol/L (98-110); FCOHb 0.4 % (0.0-3.9); FMetHb 0.3 % (0.0-1.5); FO2Hb 98.9 % (94-97); GLUCOSE (ABG) 104 mg/dl (70-105); IONIZED CA (ABG) 0.91 mmol/L (1.10-1.43); K (ABG) 3.2 mmol/L (3.5-5.0); TOTAL HEMOGLOBIN 8.2 G/dl (12.0-16.0)
--- NOTE | 2021-01-26 06:51 | NUR ---
Patient in room ICU 2044. I have received report from Aditya SIMMONS and had the opportunity to ask questions and assume patient care.
[2021-01-26] MEDS: sennosides/docusate sodium tablet PO SCH ×2 (07:14→22:07)
[2021-01-26] MEDS: folic acid 1mg tablet PO SCH (07:21)
[2021-01-26] MEDS: aspirin 325mg tablet, delayed-release (Ecotrin) PO SCH (07:22)
[2021-01-26] MEDS: buPROPion SR 150mg tablet PO SCH ×2 (07:22→22:06)
[2021-01-26] MEDS: pantoprazole 40mg Tablet.DR PO SCH (07:22)
[2021-01-26] MEDS: levoTHYROXINE 88mcg tablet PO SCH (07:22)
[2021-01-26] MEDS: carBAMazepine Ext. Release 200 MG TAB.ER.12H PO SCH ×2 (07:23→20:00)
[2021-01-26] MEDS: FLUoxetine 20mg capsule PO SCH ×2 (07:23→22:07)
[2021-01-26] MEDS: multivitamins, therapeutics tablet PO SCH (07:23)
[2021-01-26] MEDS: potassium Cl 20 mEq SR tablet PO SCH ×2 (07:23→22:05)
[2021-01-26] MEDS: thiamine 100mg tablet PO SCH (07:23)
[2021-01-26] MEDS: metoprolol tartrate 25mg tablet PO SCH (07:24)
[2021-01-26] MEDS: magnesium Cl slow-release 64mg tablet PO SCH ×2 (07:28→22:07)
--- NOTE | 2021-01-26 15:56 | NUR ---
Called to give report to nurse, unavailable at this time. Nurse stated they will call back.
--- NOTE | 2021-01-26 16:43 | NUR ---
Partial report given to nurse Ade SIMMONS. Nurse had to hang and stated she will call back.
--- NOTE | 2021-01-26 17:12 | NUR ---
Report given to Ade SIMMONS. Pt going to room 3010.
--- NOTE | 2021-01-26 17:42 | NUR ---
Patient transferred to room 3010 with at bedside. All belongings sent with ptHank Booker RN at bedside to receive patient.
--- NOTE | 2021-01-26 18:40 | NUR ---
Problems reprioritized. Patient report given, questions answered & plan of care reviewed with TROY CASTELLANO.
--- NOTE | 2021-01-26 19:00 | NUR ---
Received pt in bed very angry and anxious, pt assisted to the bathroom to have a BM. Pt placed back to bed and refused to be assessed. Will monitor pt for fall and pain management.
--- NOTE | 2021-01-26 20:35 | NUR ---
Pt complaints of pain appears more calm but still continues to disrespect staff; pt instructed to stop this behavior and voiced her feelings and concerns appropriately. Pt refused IV site to be change after complaining of pain while flushing the line. Will reassess line status later.
[2021-01-26] MEDS: atorvastatin 10mg tablet PO SCH (21:00)
[2021-01-26] MEDS: insulin glargine (Lantus) pen - multi-dose SQ SCH (21:00)
[2021-01-26] MEDS: amitriptyline 50mg tablet PO SCH (22:05)
[2021-01-26] MEDS: metoprolol tartrate 12.5mg (1/2 tablet) PO SCH (22:07)
[2021-01-27 02:00] VITALS: BP 126/74
[2021-01-27] MEDS: ketorolac tromethamine 15mg/ml inj. IV SCH ×2 (04:56→08:00)
--- NOTE | 2021-01-27 04:56 | NUR ---
Pt asleep arousal to stimuli; pleasantly refusing line replacement. Pt medicated for pain; line working well.Mid sternal dressing
--- NOTE | 2021-01-27 04:56 | NUR ---
Mid sternal dressing is clean and intact
[2021-01-27 06:00] VITALS: BP 129/84
--- NOTE | 2021-01-27 06:30 | NUR ---
Patient in room PCU 3010. I have received report from Keesha SIMMONS and had the opportunity to ask questions and assume patient care.
[2021-01-27 06:56] LABS: BASOPHILS % (AUTO) 0.3 % (0-1); EOSINOPHILS # (AUTO) 0.2 X10'3 (0-0.9); EOSINOPHILS % (AUTO) 3.2 % (0-6); HEMOGLOBIN 8.6 g/dl (12.0-16.0); LYMPHOCYTES # (AUTO) 0.6 X10'3 (1.1-4.8); LYMPHOCYTES % (AUTO) 12.1 % (21-51); MEAN CORPUSCULAR HEMOGLOBIN 33.1 PG (27.0-31.0); MEAN CORPUSCULAR HGB CONC 34.2 g/dL (33.0-36.5); MEAN CORPUSCULAR VOLUME 96.7 FL (78-98); MEAN PLATELET VOLUME 8.3 FL (7.4-10.4); MONOCYTES # (AUTO) 0.5 X10'3 (0-0.9); MONOCYTES % (AUTO) 9.3 % (2-12); NEUTROPHILS # (AUTO) 3.8 X10'3 (1.8-7.7); NEUTROPHILS % (AUTO) 75.1 % (42-75); PLATELET COUNT 185 X10'3 (140-440); RED BLOOD COUNT 2.59 X10'6 (4.20-5.60); RED CELL DISTRIBUTION WIDTH 13.8 % (11.5-14.5); WHITE BLOOD COUNT 5.1 X10'3 (4.5-11.0)
[2021-01-27] MEDS: sennosides/docusate sodium tablet PO SCH (07:41)
[2021-01-27] MEDS: folic acid 1mg tablet PO SCH (07:42)
[2021-01-27] MEDS: magnesium Cl slow-release 64mg tablet PO SCH ×2 (07:42→19:21)
[2021-01-27] MEDS: potassium Cl 20 mEq SR tablet PO SCH ×2 (07:42→19:20)
[2021-01-27] MEDS: levoTHYROXINE 88mcg tablet PO SCH (07:42)
[2021-01-27] MEDS: aspirin 325mg tablet, delayed-release (Ecotrin) PO SCH (07:42)
[2021-01-27] MEDS: buPROPion SR 150mg tablet PO SCH ×2 (07:42→19:22)
[2021-01-27] MEDS: multivitamins, therapeutics tablet PO SCH (07:43)
[2021-01-27] MEDS: FLUoxetine 20mg capsule PO SCH (07:43)
[2021-01-27] MEDS: metoprolol tartrate 12.5mg (1/2 tablet) PO SCH ×2 (07:43→19:21)
[2021-01-27] MEDS: thiamine 100mg tablet PO SCH (07:44)
[2021-01-27] MEDS: pantoprazole 40mg Tablet.DR PO SCH (07:44)
[2021-01-27 07:56] LABS: ALBUMIN 2.4 G/DL (3.4-5.0); ANION GAP 7 (8-16); BLOOD UREA NITROGEN 8 MG/DL (7-18); BUN/CREATININE RATIO 12.7 (6.6-38.0); CALCIUM 8.3 MG/DL (8.5-10.1); CHLORIDE 108 MMOL/L (99-107); CREATININE 0.63 MG/DL (0.40-0.90); GLUCOSE 119 MG/DL (70-104); SODIUM 141 MMOL/L (135-145); eGFR > 90 ML/MIN
[2021-01-27] MEDS ORDERED: ibuprofen tablet 400 MG TABLET PO SCH (08:35)
[2021-01-27] MEDS ORDERED: IBUP-1984 PO (08:58)
[2021-01-27] MEDS: ibuprofen tablet 400 MG TABLET PO PRN ×2 (09:34→16:19)
[2021-01-27] MEDS: carBAMazepine Ext. Release 200 MG TAB.ER.12H PO SCH ×2 (10:07→19:19)
[2021-01-27 11:00] VITALS: BP 120/76
--- NOTE | 2021-01-27 12:07 | NUR ---
Nutrition consult: Pt s/p CABG x 3 01/23. Provided pt w/ written and verbal nutrition for wound healing education w/ RD contact info. Pt receptive of education. Will continue to monitor. Recs: 1. Continue Regular/NCS diet as tolerated 2. Francisco Javier Smoothie BID BD; pending MD verification 3. Bowel care per rx 4. Weekly wts Addendum: 01/27/21 at [address] Amended: Links added.
[2021-01-27 15:00] VITALS: BP 145/78
[2021-01-27] MEDS: JUVEN Smoothie Arginine/Glut./Ca2+Bmb (Juven 19.3pkt) 240ml cup PO SCH (17:43)
[2021-01-27 18:00] VITALS: BP 143/74
--- NOTE | 2021-01-27 18:10 | NUR ---
Problems reprioritized. Patient report given, questions answered & plan of care reviewed with Kym RN, patient stable at transfer of care.
--- NOTE | 2021-01-27 18:12 | NUR ---
[place] documentation: I have reviewed and agree with all interventions, assessments performed and documented by Lilly SIMMONS.
--- NOTE | 2021-01-27 18:13 | NUR ---
[place] Medication Administration: For this medication-pass time frame, all medication were reviewed, dispensed, administered and documented per hospital policy by Lilly SIMMONS.
[2021-01-27] MEDS ORDERED: LORazepam 2 mg/ml vial IV PRN (18:35)
[2021-01-27] MEDS ORDERED: LORazepam 1 MG tablet PO PRN (18:35)
[2021-01-27] MEDS ORDERED: zolpidem 5mg tablet PO PRN (20:00)
[2021-01-27] MEDS: amitriptyline 50mg tablet PO SCH (23:28)
[2021-01-27] MEDS: atorvastatin 10mg tablet PO SCH (23:30)
[2021-01-28 07:00] VITALS: BP 129/72
[2021-01-28] MEDS ORDERED: furosemide 40mg/4ml inj IV ONE (07:45)
[2021-01-28] MEDS ORDERED: FLUoxetine 20mg capsule PO SCH (08:00)
[2021-01-28] MEDS: levoTHYROXINE 88mcg tablet PO SCH (08:05)
[2021-01-28] MEDS: JUVEN Smoothie Arginine/Glut./Ca2+Bmb (Juven 19.3pkt) 240ml cup PO SCH (08:05)
[2021-01-28] MEDS: pantoprazole 40mg Tablet.DR PO SCH (08:05)
[2021-01-28] MEDS: folic acid 1mg tablet PO SCH (08:07)
[2021-01-28] MEDS: aspirin 325mg tablet, delayed-release (Ecotrin) PO SCH (08:07)
[2021-01-28] MEDS: carBAMazepine Ext. Release 200 MG TAB.ER.12H PO SCH (08:07)
[2021-01-28] MEDS: potassium Cl 20 mEq SR tablet PO SCH (08:08)
[2021-01-28] MEDS: multivitamins, therapeutics tablet PO SCH (08:08)
[2021-01-28] MEDS: magnesium Cl slow-release 64mg tablet PO SCH (08:08)
[2021-01-28] MEDS: metoprolol tartrate 12.5mg (1/2 tablet) PO SCH (08:08)
[2021-01-28] MEDS: buPROPion SR 150mg tablet PO SCH (08:08)
[2021-01-28 08:16] LABS: BASOPHILS % (AUTO) 0.5 % (0-1); EOSINOPHILS # (AUTO) 0.2 X10'3 (0-0.9); EOSINOPHILS % (AUTO) 3.7 % (0-6); HEMATOCRIT 26.6 % (35.0-45.0); HEMOGLOBIN 9.2 g/dl (12.0-16.0); LYMPHOCYTES # (AUTO) 0.6 X10'3 (1.1-4.8); LYMPHOCYTES % (AUTO) 12.7 % (21-51); MEAN CORPUSCULAR HEMOGLOBIN 34.2 PG (27.0-31.0); MEAN CORPUSCULAR HGB CONC 34.6 g/dL (33.0-36.5); MEAN CORPUSCULAR VOLUME 98.8 FL (78-98); MEAN PLATELET VOLUME 8.1 FL (7.4-10.4); MONOCYTES # (AUTO) 0.6 X10'3 (0-0.9); MONOCYTES % (AUTO) 13.5 % (2-12); NEUTROPHILS # (AUTO) 3.2 X10'3 (1.8-7.7); NEUTROPHILS % (AUTO) 69.6 % (42-75); PLATELET COUNT 235 X10'3 (140-440); RED CELL DISTRIBUTION WIDTH 13.8 % (11.5-14.5); WHITE BLOOD COUNT 4.7 X10'3 (4.5-11.0)
[2021-01-28 08:20] LABS: ALBUMIN 2.5 G/DL (3.4-5.0); ANION GAP 5 (8-16); BLOOD UREA NITROGEN 6 MG/DL (7-18); BUN/CREATININE RATIO 8.7 (6.6-38.0); CALCIUM 8.6 MG/DL (8.5-10.1); CHLORIDE 107 MMOL/L (99-107); CREATININE 0.69 MG/DL (0.40-0.90); GLUCOSE 117 MG/DL (70-104); POTASSIUM 4.1 MMOL/L (3.5-5.1); SODIUM 141 MMOL/L (135-145); TOTAL CARBON DIOXIDE 28.7 MMOL/L (24-32); eGFR 86 ML/MIN
[2021-01-28 11:00] VITALS: BP 138/99
[2021-01-28] MEDS: acetaminophen 325mg tablet PO PRN (11:11)
--- NOTE | 2021-01-28 13:09 | NUR ---
Pt was DC to home and left with her . PIV was removed with cannula intact. RX were escripted to [facility] in [place] . DC instructions and warning s/s were reviewed with patient and she verbalized understanding. Patient was alert, oriented and appropriated at time of DC. PT educated on sternal precautions and verbalized understanding.
[2021-02-02] MEDS ORDERED: HYDR-3965 PO (17:36)
== END 2021-01-28 13:03 | disposition home or self-care (01) | DRG 236 ==
LOC: PAS IN 01-23 05:27 → UNDOADMIN 01-23 05:27 → PAS IN 01-23 09:56 → ICU 2S 01-23 09:56 → PAS IN 01-23 13:15 → PCU 3S 01-26 17:24
PROVIDERS: ADMIT Thoracic Surgery (Cardiothoracic Vascular Surgery); ATTEND Thoracic Surgery (Cardiothoracic Vascular Surgery)
PROC: 021209W Bypass Coronary Artery, Three Arteries from Aorta with Autologous Venous Tissue, Open Approach (ICD-10-PCS; 2021-01-23)
PROC: 06BP4ZZ Excision of Right Saphenous Vein, Percutaneous Endoscopic Approach (ICD-10-PCS; 2021-01-23)
PROC: 5A1221Z Performance of Cardiac Output, Continuous (ICD-10-PCS; 2021-01-23)
PROC: B24BZZ4 Ultrasonography of Heart with Aorta, Transesophageal (ICD-10-PCS; 2021-01-23)
PROC: 02100Z9 Bypass Coronary Artery, One Artery from Left Internal Mammary, Open Approach (ICD-10-PCS; principal; 2021-01-23 07:18)
PROC: 30233N1 Transfusion of Nonautologous Red Blood Cells into Peripheral Vein, Percutaneous Approach (ICD-10-PCS; 2021-01-24)
DX: I25.10 Atherosclerotic heart disease of native coronary artery without angina pectoris (principal); E03.9 Hypothyroidism, unspecified; E78.5 Hyperlipidemia, unspecified; F31.9 Bipolar disorder, unspecified; J45.909 Unspecified asthma, uncomplicated; K58.0 Irritable bowel syndrome with diarrhea; I10 Essential (primary) hypertension; I95.9 Hypotension, unspecified; D64.89 Other specified anemias; K21.9 Gastro-esophageal reflux disease without esophagitis; I25.5 Ischemic cardiomyopathy; G25.3 Myoclonus; Z88.5 Allergy status to narcotic agent; Z90.49 Acquired absence of other specified parts of digestive tract; Z98.891 History of uterine scar from previous surgery
CPT/HCPCS: 36415; 36430; 36600; 71045; 71046; 80048; 80053; 81001; 82330; 82435; 82803; 82947; 82948; 83036; 83735; 84100; 84132; 84295; 84443; 85018; 85025; 85027; 85347; 85610; 85730; 86885; 86900; 86901; 86920; 87077; 87081; 87088; 87186; 93005; 93312; 93325; 93880; 93971; 94002; 94640; 94760; 97110; 97116; 97161; 97530; A4618; A6258; A6449; A7000; A7048; C1751; C9113; G0378; J0171; J0690; J1100; J1644; J1815; J1885; J1940; J2001; J2060; J2150; J2250; J2270; J2370; J2405; J2440; J2704; J2930; J3370; J3475; J3480; J3490; J7030; J7040; J7050; J7120; P9016; P9045; P9047; U0003; U0005